=== PATIENT | female | born 1990 | race Caucasian/White ===

== ENCOUNTER 2024-02-17 12:57 | Emergency (ER) | payer OTHER, SELFPAY ==
[2024-02-17 13:07] VITALS: BP 158/95; PULSE 102; RESP 16; TEMP 36.1; O2SAT 98; BMI 36.3
--- NOTE | 2024-02-17 13:11 | ED_ITS ---
HPI - General Adult General Chief complaint: Dental/Oral Stated complaint: Facial swelling antibiotics not helping Time Seen by Provider: 02/17/24 13:36 Source: patient and RN notes reviewed Mode of arrival: ambulatory Limitations: no limitations History of Present Illness HPI narrative: This is a 34 y/o F presenting to the ER with complaints of R sided facial swelling x 2 days. Patient states that she developed right sided facial swelling thursday and right upper dental pain. She called her dentist who sent her augmentin which she has been taking without minimal relief. She denies any fevers, chills, difficulty swallowing or opening her mouth. No chest pain, shortness of breath, nausea, vomiting or diarrhea. No other complaints or concerns. MD complaint: R facial swelling Onset (ago): day(s) Location: face and mouth Radiation: non-radiation Severity: moderate Quality: aching Pain Consistency: constant Relieving factors: none Exacerbating factors: none Associated symptoms: denies other symptoms Treatments prior to arrival: none Related Data Allergies Allergy/AdvReac Type Severity Reaction Status Date / Time sulfamethoxazole Allergy Rash Verified 02/17/24 13:13 [From Bactrim] trimethoprim [From Bactrim] Allergy Rash Verified 02/17/24 13:13 Review of Systems Review of Systems: Yes all other systems are reviewed and are negative Constitutional: Constitutional: Reports as per [facility] [place] Social History Social History Advance Directives: No Physical Exam ED Vital Signs: Vital Signs - 24 hr 02/17/24 13:07 02/17/24 14:11 Temperature 97 F 97 F Pulse Rate 102 H 102 H Respiratory Rate 16 20 Blood Pressure 158/95 H 158/95 H Pulse Oximetry 98 98 Oxygen Delivery Method Room Air Room Air BMI result Body Mass Index 36.3 Const General: cooperative, comfortable and no acute distress Orientation/consciousness: patient oriented x3 Limitations: no limitations HENMT Other: Right upper outer gumline, lining tooth # 1,2,3 there is an area of induration and fluctuance. TTP. Teeth in good repair. Right sided facial swelling. No trimus, drooling or dysphoonia. able to open and close jaw without difficulty. Head: Yes normal to inspection, Yes normocephalic and Yes atraumatic Ears: hearing grossly normal bilaterally General nose exam: Normal external nose present Face and sinus: Yes normal facial exam Mouth: Normal oral and palatal mucosa present, oropharynx normal and moist mucous membranes Throat: Yes posterior oropharynx normal Eyes General: appearance normal, both eyes and all related structures Eyelids: Yes eyelids normal Conjunctivae: conjunctivae normal Sclerae: sclerae normal Pupils: Equal, round and reactive pupils present EOM: EOMs intact bilaterally Neck Neck: Yes normal visual inspection, Yes full ROM and Yes no lymphadenopathy Lymphatic: no lymphadenopathy noted Chest Chest palpation & inspection: normal inspection of the chest Resp Effort & Inspection: normal respiratory effort and able to speak in complete sentences Auscultation: clear to auscultation bilaterally, no crackles, no rales, no rhonchi and no wheezes Cardio Rate: regular rate Rhythm: regular rhythm Heart sounds: S1 normal heart sound present and S2 normal heart sound present GI Inspection: Yes normal to inspection Skin General skin exam: no rashes or lesions noted Trauma: no lacerations or abrasions Wounds: no wounds Neuro General: patient oriented x3 and moves all extremities Cranial nerves: Yes CN's II-XII intact bilaterally and Yes Equal, round and reactive pupils present Cognition (Neuro): normal cognition Gait exam (Neuro): Normal gait present Motor exam (neuro): 5/5 motor strength present throughout Extrem General: Yes normal to inspection Right upper extremity: normal to inspection Left upper extremity: normal to inspection Right lower extremity: normal to inspection Left lower extremity: normal to inspection Procedures Abscess I/D Site: oral Side (if applicable): right Local Anesthetic: other anesthetic (Lolli-tao) Technique: needle aspiration Amount of fluid expressed (mL): 1 Sent for culture/gram staining?: No Irrigation: Yes Packing used?: none Medical Decision Making Medical Decision Making MDM Narrative: 34 y/o F presenting with right sided facial swelling and dental pain. Right upper gum line with dental abscess noted. Needle aspiration performed with some purulent drainage expressed. Pt tolerated procedure well. She is already on augmentin > has had 4 total doses. Advised to continue taking aad f/u with dentist tomorrow as scheduled. D/c with strict precautions. Stable for d/c. Differential Diagnosis Differential Diagnoses: The differential diagnosis associated with the presentation includes dental abscess, dental decay, dental fracture Tests considered The following testing was considered but not selected: CT however patient with mild swelling, able to open and close jaw, afebrile. superficial abscess on exam. Prescription Management I considered prescription management with: Antibiotic Discharge Plan Discharge Clinical Impression: Dental abscess Patient Disposition: Home, Self-Care Instructions: Dental Abscess (ED) Additional Instructions: Your seen in the emergency department due to dental pain. You had a dental abscess that we had to drain. Please continue taking all at home antibiotics. Follow-up with your dentist as scheduled. You may take ibuprofen or Tylenol as needed for pain and symptoms. Saltwater gargles multiple times a day can also help. If any new or worsening symptoms occur including but not limited to worsening pain, worsening swelling, fevers, chills, difficulty swallowing, difficulty opening up your jaw, please return for re-evaluation. Stand Alone Forms: Work/School Release Interventions: ED Discharge Assessment Last Done: 02/17/24 14:11 Discharge Date/Time: 02/17/24 14:12
[2024-02-17 14:11] VITALS: BP 158/95; PULSE 102; RESP 20; TEMP 36.1; O2SAT 98
== END 2024-02-17 14:12 | disposition home or self-care (01) ==
PROVIDERS: Emergency Provider Emergency Medicine
DX: K04.7 Periapical abscess without sinus (principal)
CPT/HCPCS: 41800; 99282